=== PATIENT | male | born 1965 | race Caucasian/White ===

== ENCOUNTER → 2016-04-09 | Day surgery (SDC) | payer OTHER ==
[~2016-04-09] MED LIST: AMLO5TAB96 PO; BUPIVACAINE/EPINEPHRINE 0.5% PF 30 ML VIAL ONE; FENO50TA PO; FISH1000 PO; KETOROLAC TROMETHAMINE 30 MG/ML (IVP) VIAL IV PUSH ONE; LACTATED RINGER'S 1000 ML INJ 1,000 ML ONE; MEPERIDINE HCL 25 MG/ML VIAL ONE; MIDAZOLAM HCL 2 MG/2 ML VIAL ONE; ONDANSETRON HCL 4 MG/2 ML VIAL IV PUSH ONE; PROPOFOL 200 MG/20 ML AMP IV ONE; TAB-TAB PO; ceFAZolin INJ 1,000 MG VIAL ONE; excedrin PO
--- NOTE | 2016-04-09 15:58 | TN ---
cc: JOSIAS VALENCIA DATE OF SURGERY: 04/09/2016. PREOPERATIVE DIAGNOSIS: 1. Right knee internal derangement. 2. Right knee medial meniscus tear. POSTOPERATIVE DIAGNOSIS: Complex tear of the medial meniscus, right knee. OPERATIVE PROCEDURE PERFORMED: 1. Arthroscopy of the right knee. 2. Arthroscopic medial meniscectomy. SURGEON: Josias Valencia MD. ANESTHESIA: TIVA. ESTIMATED BLOOD LOSS: None. INDICATIONS FOR THE PROCEDURE: This patient is a 50-year-old male with catching, locking and at the posteromedial aspect of the right knee. Investigative studies show evidence of a complex tear of the posterior medial meniscus. He presents for surgical treatment. DESCRIPTION OF THE PROCEDURE IN DETAIL: The patient was brought to the operating room and anesthetized in the supine position. The right leg was scrubbed with alcohol followed by Hibiclens followed Chloraprep and draped sterilely. Antibiotics were given within a one hour time and a time-out was done. After exsanguination, the tourniquet was inflated to 300 mmHg. Inflow was established anterior and laterally. The suprapatellar pouch was inspected. There was an effusion. The effusion was drained. There was minimal to grade 1 change of the retropatellar region. There were no loose bodies in the medial lateral gutters. The medial compartment showed a complex posterior medial meniscus tear starting from the two o'clock position extending to the posterior horn. The ACL was normal. The lateral compartment was almost completely normal. A spinal needle was introduced along medial joint line. A separate incision was made and straight and angled punches were used to take the meniscus back from the two o'clock position to the posterior horn. A meniscal debrider was used debride this further. There was an area of almost full loss of articular cartilage posterior medial femoral condyle related to this region. This was debrided very slightly. The wound was irrigated copiously. Hemostasis was controlled. The portals were injected with 0.5% Marcaine with epinephrine. They were closed with Steri-Strips and Benzoin. The patient was awakened and taken to the recovery room in satisfactory condition. Josias Valencia MD [facility] [place] [place]3:39 PM /3:53 PM
== END | disposition home or self-care (01) ==
LOC: ESDC 12:27
PROVIDERS: ATTEND Orthopaedic Surgery Orthopaedic Surgery of the Spine
DX: S83.231A Complex tear of medial meniscus, current injury, right knee, initial encounter (principal)
CPT/HCPCS: 01400; 29881; J0690; J1885; J2175; J2250; J2405; J3010; J7120